=== PATIENT | male | born 1950 | race Caucasian/White ===

== ENCOUNTER 2018-07-18 10:40 | Outpatient (REF) | payer OTHER, SELFPAY ==
[2018-07-18 19:57] LABS: BUN 21 mg/dL (7-18); CREATININE 0.98 mg/dL (0.70-1.30); Calcium 9.2 mg/dL (8.5-10.1); Chloride 101 mmol/L (98-107); Glucose 107 mg/dL (70-100); Potassium 4.1 mmol/L (3.5-5.1); Sodium 139 mmol/L (136-145)
== END 2018-07-18 11:00 ==
LOC: NCHCN 10:40
PROVIDERS: PCP Specialist/Technologist Athletic Trainer; Visit Provider Specialist/Technologist Athletic Trainer
DX: R73.09 Other abnormal glucose (principal); I10 Essential (primary) hypertension
CPT/HCPCS: 80048

== ENCOUNTER 2019-07-04 13:20 | Outpatient (REF) | payer OTHER, SELFPAY ==
[2019-07-04 21:53] LABS: ALT 35 U/L (16-63); AST 20 U/L (15-37); Anion Gap 10.8 mmol/L (3-11); BUN 19 mg/dL (7-18); Bilirubin, Total 0.5 mg/dL (0.2-1.0); CO2 26.2 mmol/L (21.0-32.0); Calcium 9.2 mg/dL (8.5-10.1); Chloride 103 mmol/L (98-107); Glucose 103 mg/dL (70-100); LDL CHOLESTEROL 85 mg/dL (<100); Potassium 3.9 mmol/L (3.5-5.1); Sodium 140 mmol/L (136-145); TSH 1.89 uIU/mL (0.36-3.74); Total Protein 7.9 g/dL (6.4-8.2)
[2019-07-04 22:04] LABS: Vitamin D 25 Total 35.5 ng/ml (30-100)
[2019-07-04 22:26] LABS: Alkaline Phosphatase 94 U/L (46-116); FREE T4 0.93 ng/dL (0.76-1.46)
[2019-07-05 17:54] LABS: T3,Free 3.8 pg/ml (2.8-5.3)
== END 2019-07-04 13:40 ==
LOC: NCHCN 13:20
PROVIDERS: PCP Specialist/Technologist Athletic Trainer; Visit Provider Specialist/Technologist Athletic Trainer
DX: I10 Essential (primary) hypertension (principal); E78.00 Pure hypercholesterolemia, unspecified; R53.83 Other fatigue
CPT/HCPCS: 80053; 82306; 83721; 84439; 84443; 84481

== ENCOUNTER 2020-07-09 15:15 | Outpatient (REF) | payer OTHER, SELFPAY ==
[2020-07-09 18:57] LABS: HCT 40.7 % (40.0-50.0); HGB 12.8 g/dL (13.5-17.5); MCHC 31.4 % (32.0-36.0); MCV 101.8 fL (80-95); MPV 10.1 fL (8.0-11.0); Platelet Count 138 10^3/uL (130-400); RDW 14.5 % (11.8-14.1); RDW-SD 54.2 fL; WBC 5.39 10^3/uL (4.4-10.8)
[2020-07-09 19:19] LABS: AST 24 U/L (15-37); Albumin 4.1 g/dL (3.4-5.0); Alkaline Phosphatase 91 U/L (46-116); Anion Gap 10.5 mmol/L (3-11); BUN 22 mg/dL (7-18); Bilirubin, Total 0.6 mg/dL (0.2-1.0); CO2 25.5 mmol/L (21.0-32.0); CREATININE 0.93 mg/dL (0.70-1.30); Calculated LDL 95 mg/dL (<100); Chloride 102 mmol/L (98-107); Cholesterol 153 mg/dL (<200); Glucose 101 mg/dL (74-106); HDL Cholesterol 41 mg/dL (40-60); Sodium 138 mmol/L (136-145); Total Protein 7.6 g/dL (6.4-8.2); Triglyceride 86 mg/dL (<150)
[2020-07-09 19:20] LABS: ALT 39 U/L (16-63)
[2020-07-09 20:40] LABS: Hemoglobin A1C 5.6 % (<5.7)
== END 2020-07-09 15:35 ==
LOC: NCHCN 15:15
PROVIDERS: PCP Specialist/Technologist Athletic Trainer; Visit Provider Nurse Practitioner Family
DX: Z51.81 Encounter for therapeutic drug level monitoring (principal); R53.83 Other fatigue; R73.03 Prediabetes; E78.00 Pure hypercholesterolemia, unspecified; I10 Essential (primary) hypertension
CPT/HCPCS: 80053; 80061; 85027; 83036

== ENCOUNTER 2021-01-07 10:35 | Outpatient (REF) | payer OTHER, SELFPAY ==
[2021-01-07 15:33] LABS: Abs Immature Grans 0.03 10^3/uL (0.0-0.06); Absolute Basophil Count 0.03 10^3/uL (0.0-0.2); Absolute Eosinophil Count 0.21 10^3/uL (0.0-0.7); Absolute Lymphocyte Count 1.48 10^3/uL (1.2-3.4); Absolute Monocyte Count 0.52 10^3/uL (0.1-0.8); Absolute Neutrophil Count 5.51 10^3/uL (1.2-6.7); Basophils % 0.4; Eosinophils % 2.7; Immature Grans % 0.4; Monocytes % 6.7; Neutrophils % 70.8
[2021-01-07 17:10] LABS: Vitamin B12 489 pg/mL (193-986)
[2021-01-07 17:25] LABS: Folate > 20.0 ng/mL (8.6-20.0)
== END 2021-01-07 10:36 | disposition home or self-care (01) ==
LOC: NCHCN 10:35
PROVIDERS: PCP Specialist/Technologist Athletic Trainer; Visit Provider Nurse Practitioner Family
DX: D53.8 Other specified nutritional anemias (principal)
CPT/HCPCS: 82607; 82746; 85007

== ENCOUNTER 2021-07-12 11:06 | Outpatient (REF) | payer OTHER, SELFPAY ==
[2021-07-12 16:18] LABS: Anion Gap 8.6 mmol/L (3-11); BUN 17 mg/dL (7-18); CO2 29.4 mmol/L (21.0-32.0); CREATININE 0.9 mg/dL (0.70-1.30); Calcium 9.2 mg/dL (8.5-10.1); Chloride 104 mmol/L (98-107); Glucose 113 mg/dL (74-106); Potassium 4.2 mmol/L (3.5-5.1); Sodium 142 mmol/L (136-145)
[2021-07-12 16:23] LABS: Hemoglobin A1C 5.5 % (<5.7)
== END 2021-07-12 11:07 | disposition home or self-care (01) ==
LOC: NCHCN 11:06
PROVIDERS: PCP Specialist/Technologist Athletic Trainer; Visit Provider Nurse Practitioner Family
DX: I10 Essential (primary) hypertension (principal); R73.03 Prediabetes
CPT/HCPCS: 80048; 83036

== ENCOUNTER 2022-01-06 19:52 | Outpatient (REF) | payer MEDICARE, SELFPAY ==
[2022-01-06 19:23] LABS: Abs Immature Grans 0.03 10^3/uL (0.0-0.06); Absolute Basophil Count 0.03 10^3/uL (0.0-0.2); Absolute Eosinophil Count 0.24 10^3/uL (0.0-0.7); Absolute Lymphocyte Count 2.23 10^3/uL (1.2-3.4); Absolute Monocyte Count 0.55 10^3/uL (0.1-0.8); Absolute Neutrophil Count 5.55 10^3/uL (1.2-6.7); Basophils % 0.3; Eosinophils % 2.8; HCT 43.4 % (40.0-50.0); HGB 13.4 g/dL (13.5-17.5); Immature Grans % 0.3; Lymphocytes % 25.8; MCH 31.9 pg (27.0-33.0); MCHC 30.9 % (32.0-36.0); MCV 103 fL (80-95); MPV 10.5 fL (8.0-11.0); Monocytes % 6.4; Neutrophils % 64.4; Platelet Count 167 10^3/uL (130-400); RDW 13.6 % (11.8-14.1); RDW-SD 52.4 fL; WBC 8.63 10^3/uL (4.4-10.8)
[2022-01-06 20:25] LABS: Vitamin B12 704 pg/mL (193-986)
[2022-01-06 20:40] LABS: Folate > 20.0 ng/mL (8.6-20.0)
== END 2022-01-06 19:53 | disposition home or self-care (01) ==
LOC: NCHCN 19:52
PROVIDERS: PCP Specialist/Technologist Athletic Trainer; Visit Provider Nurse Practitioner Family
DX: D53.9 Nutritional anemia, unspecified (principal)
CPT/HCPCS: 82607; 82746; 85025

== ENCOUNTER 2022-05-20 17:53 | Outpatient (REF) | payer MEDICARE, SELFPAY ==
[2022-05-20 15:46] LABS: Hemoglobin A1C 5.6 % (<5.7)
[2022-05-20 15:48] LABS: Anion Gap 8.6 mmol/L (3-11); BUN 15 mg/dL (7-18); CO2 27.4 mmol/L (21.0-32.0); CREATININE 0.9 mg/dL (0.70-1.30); Calcium 8.8 mg/dL (8.5-10.1); Calculated LDL 71 mg/dL (<100); Chloride 99 mmol/L (98-107); Cholesterol 140 mg/dL (<200); Estimated GFR 90.74 (mL/min/1.73m2); Glucose 97 mg/dL (74-106); HDL Cholesterol 43 mg/dL (40-60); Potassium 4.1 mmol/L (3.5-5.1); Sodium 135 mmol/L (136-145); Triglyceride 130 mg/dL (<150)
== END 2022-05-20 17:54 | disposition home or self-care (01) ==
LOC: NCHCN 17:53
PROVIDERS: PCP Specialist/Technologist Athletic Trainer; Visit Provider Nurse Practitioner Family
DX: I10 Essential (primary) hypertension (principal); R73.03 Prediabetes; E78.00 Pure hypercholesterolemia, unspecified
CPT/HCPCS: 80048; 80061; 83036

== ENCOUNTER 2022-11-17 12:08 | Outpatient (REF) | payer MEDICARE, SELFPAY ==
[2022-11-17 16:48] LABS: Calculated LDL 74 mg/dL (<100); Cholesterol 147 mg/dL (<200); HDL Cholesterol 51 mg/dL (40-60); Triglyceride 112 mg/dL (<150)
== END 2022-11-17 12:09 | disposition home or self-care (01) ==
LOC: NCHCN 12:08
PROVIDERS: PCP Specialist/Technologist Athletic Trainer; Visit Provider Nurse Practitioner Family
DX: E78.00 Pure hypercholesterolemia, unspecified (principal)
CPT/HCPCS: 80061

== ENCOUNTER 2023-05-18 16:04 | Outpatient (REF) | payer MEDICARE, SELFPAY ==
[2023-05-18 18:51] LABS: Abs Immature Grans 0.02 10^3/uL (0.0-0.06); Absolute Basophil Count 0.04 10^3/uL (0.0-0.2); Absolute Eosinophil Count 0.22 10^3/uL (0.0-0.7); Absolute Lymphocyte Count 2.09 10^3/uL (1.2-3.4); Absolute Monocyte Count 0.45 10^3/uL (0.1-0.8); Absolute Neutrophil Count 4.95 10^3/uL (1.2-6.7); Basophils % 0.5; Eosinophils % 2.8; HCT 38.7 % (40.0-50.0); HGB 12.6 g/dL (13.5-17.5); Immature Grans % 0.3; Lymphocytes % 26.9; MCH 32.6 pg (27.0-33.0); MCHC 32.6 % (32.0-36.0); MCV 100 fL (80-95); MPV 10.4 fL (8.0-11.0); Monocytes % 5.8; Neutrophils % 63.7; Platelet Count 176 10^3/uL (130-400); RBC 3.86 10^6/uL (4.36-5.78); RDW 13.9 % (11.8-14.1); RDW-SD 51.8 fL; WBC 7.77 10^3/uL (4.4-10.8)
[2023-05-18 19:23] LABS: ALT 33 U/L (16-63); AST 28 U/L (15-37); Albumin 4.2 g/dL (3.4-5.0); Alkaline Phosphatase 88 U/L (46-116); Anion Gap 9.2 mmol/L (3-11); BUN 16 mg/dL (7-18); Bilirubin, Total 0.6 mg/dL (0.2-1.0); CO2 28.8 mmol/L (21.0-32.0); CREATININE 0.9 mg/dL (0.70-1.30); Calcium 9.2 mg/dL (8.5-10.1); Calculated LDL 77 mg/dL (<100); Chloride 100 mmol/L (98-107); Cholesterol 150 mg/dL (<200); Estimated GFR 90.18 (mL/min/1.73m2); Glucose 98 mg/dL (74-106); HDL Cholesterol 46 mg/dL (40-60); Potassium 3.7 mmol/L (3.5-5.1); Sodium 138 mmol/L (136-145); TSH (W/Ref FT4) 1.82 uIU/mL (0.36-3.74); Total Protein 8.1 g/dL (6.4-8.2); Triglyceride 138 mg/dL (<150)
[2023-05-18 19:38] LABS: Vitamin D 25 Total 41.1 ng/mL (30-100)
[2023-05-18 19:40] LABS: Hemoglobin A1C 5.5 % (<5.7)
[2023-05-19 08:43] LABS: Vitamin B12 631 pg/mL (193-986)
[2023-05-22 09:24] LABS: Lyme Ab w Rflx to Lyme Confirm Negative (Negative)
[2023-05-22 09:43] LABS: Anaplasma phagocytophilum Negative (Negative); B. miyamotoi PCR Negative (Negative); Babesia divergens/MO-1 Negative (Negative); Babesia duncani Negative (Negative); Babesia microti Negative (Negative); Ehrlichia chaffeensis Negative (Negative); Ehrlichia ewingii/canis Negative (Negative); Ehrlichia muris eauclairensis Negative (Negative)
== END 2023-05-18 16:05 | disposition home or self-care (01) ==
LOC: NCHCN 16:04
PROVIDERS: PCP Specialist/Technologist Athletic Trainer; Visit Provider Nurse Practitioner Family
DX: I10 Essential (primary) hypertension (principal); E78.00 Pure hypercholesterolemia, unspecified; R53.83 Other fatigue; W57.XXXA Bitten or stung by nonvenomous insect and other nonvenomous arthropods, initial encounter
CPT/HCPCS: 80053; 80061; 82306; 87798; 82607; 83036; 84443; 85025; 86618

== ENCOUNTER 2023-05-22 16:08 | Outpatient (REF) | payer MEDICARE, SELFPAY ==
[2023-05-22 16:17] LABS: Folate > 20.0 ng/mL (8.6-20.0)
== END 2023-05-22 16:09 | disposition home or self-care (01) ==
LOC: NCHCN 16:08
PROVIDERS: PCP Specialist/Technologist Athletic Trainer; Visit Provider Nurse Practitioner Family
DX: D53.9 Nutritional anemia, unspecified (principal); R53.83 Other fatigue
CPT/HCPCS: 82746

== ENCOUNTER 2023-11-17 14:56 | Outpatient (REF) | payer MEDICARE, SELFPAY ==
[2023-11-17 16:40] LABS: Abs Immature Grans 0.02 10^3/uL (0.0-0.06); Absolute Basophil Count 0.05 10^3/uL (0.0-0.2); Absolute Eosinophil Count 0.18 10^3/uL (0.0-0.7); Absolute Lymphocyte Count 1.89 10^3/uL (1.2-3.4); Absolute Monocyte Count 0.59 10^3/uL (0.1-0.8); Absolute Neutrophil Count 5.85 10^3/uL (1.2-6.7); Basophils % 0.6; Eosinophils % 2.1; HCT 42.2 % (40.0-50.0); HGB 13.3 g/dL (13.5-17.5); Immature Grans % 0.2; MCH 31.4 pg (27.0-33.0); MCHC 31.5 % (32.0-36.0); MCV 100 fL (80-95); MPV 10.1 fL (8.0-11.0); Monocytes % 6.9; Neutrophils % 68.2; Platelet Count 154 10^3/uL (130-400); RBC 4.23 10^6/uL (4.36-5.78); RDW 14.6 % (11.8-14.1); RDW-SD 53.6 fL; WBC 8.58 10^3/uL (4.4-10.8)
[2023-11-17 17:07] LABS: ALT 32 U/L (16-63); AST 25 U/L (15-37); Albumin 3.9 g/dL (3.4-5.0); Alkaline Phosphatase 92 U/L (46-116); Anion Gap 7.7 mmol/L (3-11); BUN 18 mg/dL (7-18); Bilirubin, Total 0.6 mg/dL (0.2-1.0); CO2 29.3 mmol/L (21.0-32.0); Calcium 9.2 mg/dL (8.5-10.1); Chloride 103 mmol/L (98-107); Estimated GFR 78.98 (mL/min/1.73m2); Glucose 85 mg/dL (74-106); Sodium 140 mmol/L (136-145); Total Protein 7.8 g/dL (6.4-8.2)
[2023-11-17 17:08] LABS: Hemoglobin A1C 5.4 % (<5.7)
== END 2023-11-17 14:57 | disposition home or self-care (01) ==
LOC: NCHCN 14:56
PROVIDERS: PCP Specialist/Technologist Athletic Trainer; Referring Provider Nurse Practitioner Family; Visit Provider Nurse Practitioner Family
DX: D53.9 Nutritional anemia, unspecified (principal); R73.03 Prediabetes
CPT/HCPCS: 80053; 83036; 85025

== ENCOUNTER 2024-11-18 13:56 | Outpatient (REF) | payer MEDICARE, SELFPAY ==
[2024-11-18 15:55] LABS: HCT 41.2 % (40.0-50.0); MCH 32.3 pg (27.0-33.0); MCHC 31.6 % (32.0-36.0); MCV 102 fL (80-95); MPV 10.5 fL (8.0-11.0); Platelet Count 136 10^3/uL (130-400); RBC 4.03 10^6/uL (4.36-5.78); RDW 13.8 % (11.8-14.1); RDW-SD 52.6 fL; WBC 7.56 10^3/uL (4.4-10.8)
[2024-11-18 16:33] LABS: ALT 31 U/L (16-63); AST 23 U/L (15-37); Albumin 3.8 g/dL (3.4-5.0); Alkaline Phosphatase 94 U/L (46-116); Anion Gap 7.8 mmol/L (3-11); BUN 14 mg/dL (7-18); Bilirubin, Total 0.8 mg/dL (0.2-1.0); CO2 28.2 mmol/L (21.0-32.0); Calcium 9.6 mg/dL (8.5-10.1); Calculated LDL 58 mg/dL (<100); Chloride 106 mmol/L (98-107); Cholesterol 128 mg/dL (<200); Estimated GFR 78.49 (mL/min/1.73m2); Glucose 104 mg/dL (74-106); HDL Cholesterol 47 mg/dL (>or=40); Potassium 4.4 mmol/L (3.5-5.1); Sodium 142 mmol/L (136-145); Total Protein 7.6 g/dL (6.4-8.2); Triglyceride 117 mg/dL (<150)
[2024-11-18 16:58] LABS: Hemoglobin A1C 5.6 % (<5.7)
[2024-11-18 22:24] LABS: PSA, Screening 2.6 ng/mL (<=6.5)
== END 2024-11-18 13:57 | disposition home or self-care (01) ==
LOC: NCHCN 13:56
PROVIDERS: PCP Nurse Practitioner Family; Visit Provider Nurse Practitioner Family
DX: E78.00 Pure hypercholesterolemia, unspecified (principal); Z00.00 Encounter for general adult medical examination without abnormal findings; D53.9 Nutritional anemia, unspecified; N40.1 Benign prostatic hyperplasia with lower urinary tract symptoms
CPT/HCPCS: 80053; 80061; 84153; 85027; 83036